=== PATIENT | male | born 1990 | race Two or more races ===

== ENCOUNTER 2025-03-04 11:07 | Emergency (ER) | payer MEDICAID, OTHER ==
[~2025-03-04] VITALS: Ht 172.7 cm; Wt 82.2 kg
[2025-03-04 11:10] VITALS: TEMP 97.2
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
[2025-03-04] MEDS: HYDROcodone-ACET 5/325MG TAB PO ONE (13:15)
[2025-03-04 13:27] LABS: Hematocrit 44.9 % (41.0-53.0); Hemoglobin 15.0 g/dL (13.5-17.5); Mean Corpuscular Hemoglobin 28.0 pg (28.0-32.0); Mean Corpuscular Volume 83.7 fL (80.0-100.0); Nucleated Red Blood Cells % 0.1 %
[2025-03-04 13:32] LABS: Potassium 4.0 mmol/L (3.5-5.1); Sodium 141 mmol/L (136-145)
[2025-03-04 13:33] LABS: Anion Gap 9 (5-15); Carbon Dioxide 24 mmol/L (20-31)
[2025-03-04 13:34] LABS: Calcium 9.0 mg/dL (8.7-10.4)
[2025-03-04 13:36] LABS: Chloride 108 mmol/L (98-107)
[2025-03-04 13:38] LABS: BUN/Creatinine Ratio 12.7 (10.0-20.0); Blood Urea Nitrogen 14 mg/dL (9-23); Glucose 88 mg/dL (74-106)
[2025-03-04] MEDS: IOHEXOL 300 MG/ML 100ML BOTTLE IJ ONE (13:38)
[2025-03-04 13:40] LABS: Creatine Kinase IFCC 92 U/L (46-171)
[2025-03-04 13:43] VITALS: BP 134/83; PULSE 79; RESP 18; O2SAT 98
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
[2025-03-04 14:06] LABS: Urine Protein, UAD Negative (Negative)
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
== END 2025-03-04 16:00 | disposition home or self-care (01) ==
LOC: ER 11:13
DX: S32.018A Other fracture of first lumbar vertebra, initial encounter for closed fracture (principal); M79.605 Pain in left leg; M25.552 Pain in left hip; Z21 Asymptomatic human immunodeficiency virus [HIV] infection status; V89.2XXA Person injured in unspecified motor-vehicle accident, traffic, initial encounter; Y93.I9 Activity, other involving external motion; Y92.488 Other paved roadways as the place of occurrence of the external cause; Y99.8 Other external cause status
CPT/HCPCS: 36415; 71045; 72040; 73502; 74177; 80048; 81001; 82550; 85025; 99285; Q9967